=== PATIENT | male | born 1940 | race Caucasian/White ===

== ENCOUNTER → 2021-01-02 | Outpatient (CLI) | payer OTHER, BC ==
[~2021-01-02] MED LIST: ASPIR 8181 MG PO; ATORVASTATIN CA40 MG PO; CIPRO500 MG PO; COZAAR 50 MG TA50 M2 PO; FLEXERIL PO; FLOMAX0.4 MG PO; LIPITOR40 MG PO; LOPRESSOR25 PO; MICARDIS 80 MG80 MG PO; NITROGLYCERIN0.4 MG SUBLING; NORCO 5-325 TA1 EACH PO; PLAVIX 75 MG TA75 M1 PO; PLAVIX 75 MG TA75 MG PO; PROTONIX40 M2 PO; PROTONIX40 M4 PO
[2021-01-02 13:35] LABS: ABSOLUTE NEUTROPHILS 4.6 thou/uL (1.4-8.2); BASOPHILS 0.6 % (0.0-2.0); EOSINOPHILS 0.4 % (0.0-3.0); HEMATOCRIT 42.1 % (42.0-52.0); HEMOGLOBIN 14.2 gm/dL (14.0-18.0); LYMPHOCYTES 23.8 % (24.0-44.0); MCH 31.1 pg (26.0-34.0); MCHC 33.8 g/dL (28.0-37.0); MONOCYTES 8.5 % (1.0-8.0); PLATELET COUNT 190 thou/uL (150-400); POLYS 66.7 % (36.0-66.0); RBC 4.58 mil/uL (4.50-6.00); RDW 12.9 % (10.5-14.5); WBC 6.9 thou/uL (4.0-11.0)
--- NOTE | 2021-01-02 13:45 | EKG ---
[place] [address] [address] [place] [address] ELECTROCARDIOGRAM REPORT Name: QIAN HELLERRANJANA Collazo Room #: [facility]#: [id number] Admission: 01/02/21 Attend Phys: Keny Markham MD Discharge: Date of : 36 Report #: [id number] [facility] Test Date: 2021-01-02 Test Time: 13:29:11 Pat Name: VERONICA HELLER Department: Room: Gender: M Sack Keeper: RITA RUTHERFORD : 1940 Requested By: Keny Markham Order Number: [id number] : Janak Estrada Measurements Intervals [place] Rate: 71 P: 45 VA: 210 QRS: 33 QRSD: 87 T: 29 QT: 384 QTc: 418 Interpretive Statements Sinus rhythm Abnormal R-wave progression, early transition No previous ECG available for comparison Electronically Signed On 01-02-2021 13:45:23 CDT by Janak Estrada [email or web address] <ELECTRONICALLY SIGNED> By: Janak Estrada MD, [facility] 01/02/21 1345 1329 1329 Janak Estrada MD, FACC /EPI
[2021-01-02 13:47] LABS: APTT 25.5 Seconds (24.5-32.8); PROTIME 10.9 Seconds (10.5-12.1)
[2021-01-02 13:48] LABS: ALBUMIN 4.1 g/dL (3.4-5.0); CALCIUM 9.1 mg/dL (8.5-10.1); CREATININE 1.3 mg/dL (0.7-1.3); POTASSIUM 4.2 mmol/L (3.5-5.1); TOTAL BILIRUBIN 0.6 mg/dL (0.2-1.0); TOTAL PROTEIN 7.5 g/dL (6.4-8.2)
[2021-01-02 13:52] LABS: URINE BILIRUBIN NEGATIVE (Negative); URINE BLOOD NEGATIVE (Negative); URINE CLARITY CLEAR; URINE COLOR YELLOW; URINE GLUCOSE-RANDOM* NEGATIVE (Negative); URINE KETONES NEGATIVE (Negative); URINE LEUKOCYTES-REFLEX NEGATIVE (Negative); URINE NITRITE-REFLEX NEGATIVE (Negative); URINE PROTEIN (DIPSTICK) NEGATIVE (Negative)
== END ==
LOC: PAC 12:02
PROVIDERS: ATTEND Surgery Vascular Surgery
DX: Z01.818 Encounter for other preprocedural examination (principal); I65.21 Occlusion and stenosis of right carotid artery

== ENCOUNTER 2021-01-05 08:46 | Inpatient (IN) | payer OTHER, BC ==
[2021-01-05] VITALS (18 sets, daily range): BP systolic 79–125; BP diastolic 38–69
[~2021-01-05] VITALS: Ht 172.7 cm; Wt 89.8 kg
--- NOTE | 2021-01-05 16:39 | NUR ---
PT ARRIVED TO THE ICU FROM THE RECOVERY AT 1600. PT CONNECTED TO ICU MONITOR. PT ALERT AND ORIENTEDX4. PT RIGHT NECK PICCO DRESSING WAS CHECKED WITH ACCOUNTING SPECIALIST. PT HAS RIGHT RADIAL ART LINE. SEROSANGUINOUS DRAINAGE ON THE PICCO DRESSING WAS MARKED. CONTINUE TO MONITOR.
[2021-01-06] VITALS (18 sets, daily range): BP systolic 81–117; BP diastolic 42–82
[2021-01-06 05:44] LABS: HEMATOCRIT 29.4 % (42.0-52.0); HEMOGLOBIN 10.2 gm/dL (14.0-18.0); MCH 32.3 pg (26.0-34.0); MCHC 34.5 g/dL (28.0-37.0); MCV 93.5 fL (80.0-100.0); RBC 3.15 mil/uL (4.50-6.00); RDW 13.1 % (10.5-14.5); WBC 10.2 thou/uL (4.0-11.0)
[2021-01-06 05:48] LABS: CREATININE 1.2 mg/dL (0.7-1.3); POTASSIUM 4.2 mmol/L (3.5-5.1)
--- NOTE | 2021-01-06 06:08 | NUR ---
Progressing toward goals. Pt has remained off Cardene, VS stable. Urine output 450 cc for shift. No further drainage on right neck ASHU drsg overnight. Pain controlled with hydrocodone. Pt taking po without nausea or vomitting. Pt up to chair with minimal assist of 2.
--- NOTE | 2021-01-06 11:18 | O ---
[facility] [place] [address] OPERATIVE REPORT Name: VERONICA HELLER Room #: 250-P ADM IN M.R.#: [id number] Admission: 01/05/21 Attend Phys: Keny Markham MD Discharge: Date of : 36 Report #: [id number] THIS REPORT FOR: cc: Nikki Beltran MD, Katrina MD Forman,Keny Friend MD ~ DOC #: [id number] Keny Markham MD DATE OF SERVICE: 01/05/2021 PREOPERATIVE DIAGNOSIS: Right carotid artery stenosis. POSTOPERATIVE DIAGNOSIS: Right carotid artery stenosis. PROCEDURE: Right carotid endarterectomy with patch closure. SURGEON: Keny Markham MD [employer]ICER: CHRIS Jernigan. ANESTHESIA: General. INDICATIONS: The patient is an 80-year-old with 90+ % right internal carotid stenosis, left side has calcification, but more trivial stenosis. FINDINGS AND TECHNIQUE: After general anesthesia was established, an oblique right neck incision was made. Common internal and external carotid artery and the superior thyroid artery were identified and controlled. The bifurcation was relatively low. A 10,000 units of heparin were given and the carotid vessels were occluded. Continuous electroencephalographic monitoring was performed when the carotid vessels were occluded, no EEG changes were noted. The carotid arteriotomy was made. The endarterectomy was performed without creating a distal flap. Neointima was inspected and all loose debris was removed. Tacking sutures were placed at the transition zone. When the endarterectomy was deemed to be satisfactory, the arteriotomy was closed with thin walled pericardial patch and running Prolene. Prior to finishing the closure, the carotid vessels were backbled and the artery was flushed with heparinized saline. Flow was established first through the external and the internal carotid artery. Protamine was given. Hemostasis was ascertained. [facility] [address] [place] [address] OPERATIVE REPORT Name: VERONICA HELLER Vale Room #: 250-P [facility] IN M.R.#: [id number] Admission: 01/05/21 Attend Phys: Keny Markham MD Discharge: Date of : 36 Report #: [id number] A Lupe drain was brought out through the bottom pole of the incision and the wound was closed in layers. The patient was taken to the recovery area where his neurologic progress was monitored. All counts were reported as correct. Keny Markham MD JF/KDA <ELECTRONICALLY SIGNED> By: Keny Markham MD 01/06/21 1118 1253 1336 Keny Markham MD /nt
--- NOTE | 2021-01-06 12:11 | NUR ---
0700-OOB TO CHAIR ON ARRIVAL INTO ROOM.--VW 0900-WORKING W O.T.--VW 1000-WOTKING W P.T.--VW 1130- IN.ASHU DRSG CHANGED pREMOVAL OF AKIL CALDWELL.KRISTY & RT ACF D/C'D. PT IN EXCELLENT SPIRITS. STATED ~2 WEEKS AGO HE HAD A RIDING LAWNMOWER FALL OFF THE RAMPS WHEN LOADING IT,IT ROLLED OVER HIM AND HIS HEAD WAS HIT,SEVERAL SECONDS OF LOC. HE DID SEE HIS PRIMARY p.NO PATINO OR VISION PROBLEMS. GAIT IS A LITTLE OFF, PER P.T. & PT STATES HE HAS BEEN DEALING W LOSS OF BALANCE FOR SEVERAL MONTHS.--VW
[2021-01-07] VITALS: BP 111/59
[2021-01-07 04:20] VITALS: BP 144/77
--- NOTE | 2021-01-07 05:03 | NUR ---
assumed pt care at 1900, pt is up to the chair, alert and orientedx4, pleasant, denies pain, assessments completed and as charted, sr/sb on tele, adequate urine output, jemal dressing intact with small dried blood, no acute distress nohted, will continue to monitor and follow poc
[2021-01-07 07:35] VITALS: BP 133/70
[2021-01-07 11:35] VITALS: BP 146/59
[2021-01-07 13:31] VITALS: BP 146/59
--- NOTE | 2021-01-07 13:59 | NUR ---
ASSESSMENT CHARTED - MEDS PER OCT - NO CO'S OF PAIN OR NAUSEA. RADHA DIET AND FLUIDS. DRESSING TO R NECK WITH SIDES LIFTING UP - DR DUKE AWARE. UP TO THE BATHROOM WITH MIN ASSIST AND GAIT BELT. PT HOME THIS AFTERNOON. INSTRUCTION RE HOME MEDS/ CARE AND FOLLOW UP GIVEN TO PATIENT AND DAUGHTER - STATED UNDERSTANDING OF INSTRUCTION GIVEN. PT LEFT THE UNIT VIA WHEELCHAIR HOME VIA PVT VEHICLE ACCOMPANIED BY DAUGHTER. NO CO'S AT TIME OF D/.C.
--- NOTE | 2021-01-09 13:13 | PATH ---
[facility] [address] [place] [address] PATHOLOGY RPT PROCEDURE Name: SKY HELLER Vale Room #: 206-P DIS IN M.R.#: [id number] Admission: 01/05/21 Date of : 36 Discharge: 01/07/21 Report #: [id number] Path Case #: [id number] [facility] Accession Number: [id number] . 01 Material submitted: . artery - RIGHT CAROTID ARTERY PLAQUE. Modifiers: right, carotid . 01 Clinical history: . CAROTID ENDARTERECTOMY CAROTID STENOSIS . 02 Diagnosis: Right carotid artery plaque, endarterectomy: - Fragments of vessel wall with myxoid changes as well as calcific atherosclerotic plaque material. (IUV:pit; 01/08/2021) QTP 01/08/2021 1638 Local . 02 Electronically signed: . Addie Palacios MD, Pathologist NPI- [id number] . 01 Gross description: . Received in formalin labeled "Sky Heller, right carotid artery plaque" is a tubular portion of yellow-tran rubbery tissue measuring 2.4 cm in length and 1.4 cm in diameter. The specimen is sectioned to reveal a cut surface displaying focal yellow-tran calcification and possible stenosis of up to 25%. Sports Betting Manager tissue is submitted in cassette A1. ([facility]; 01/07/2021) [facility] 01/07/2021 1403 Local . 02 Pathologist provided ICD-10: I77.1 . 02 CPT . 467249 Specimen Comment: A courtesy copy of this report has been sent to [phone] Specimen Comment: [id number] Specimen Comment: Report sent to / DR SALOMON Specimen Comment: A duplicate report has been generated due to demographic updates. Performed at: [address] [id number] MD Holden Gonzalez MD Phone: [phone] Performed at: [address] [address] PATHOLOGY RPT PROCEDURE Name: QIAN HELLERENCE Room #: 206-P DIS IN M.R.#: [id number] Admission: 01/05/21 Date of : 36 Discharge: 01/07/21 Report #: [id number] Path Case #: [id number] [facility] [address] [id number] MD Addie Palacios MD Phone: [phone]
== END 2021-01-07 13:50 | disposition home or self-care (01) | DRG 39 ==
LOC: PRE 08:46 → TBA 09:11 → PRE 12:23 → ICU 15:37 → 2N 01-06 18:59
PROVIDERS: Physician Assistant; ADMIT Surgery Vascular Surgery; ATTEND Surgery Vascular Surgery
PROC: 03CK0ZZ Extirpation of Matter from Right Internal Carotid Artery, Open Approach (ICD-10-PCS; principal; 2021-01-05)
PROC: 03UK07Z Supplement Right Internal Carotid Artery with Autologous Tissue Substitute, Open Approach (ICD-10-PCS; principal; 2021-01-05)
DX: I65.21 Occlusion and stenosis of right carotid artery (principal); I25.10 Atherosclerotic heart disease of native coronary artery without angina pectoris; N40.0 Benign prostatic hyperplasia without lower urinary tract symptoms; E11.51 Type 2 diabetes mellitus with diabetic peripheral angiopathy without gangrene; G89.29 Other chronic pain; K21.9 Gastro-esophageal reflux disease without esophagitis; M54.9 Dorsalgia, unspecified; E78.5 Hyperlipidemia, unspecified; I10 Essential (primary) hypertension; Z85.51 Personal history of malignant neoplasm of bladder; Z90.49 Acquired absence of other specified parts of digestive tract; Z86.73 Personal history of transient ischemic attack (TIA), and cerebral infarction without residual deficits; I25.2 Old myocardial infarction; Z98.42 Cataract extraction status, left eye; Z98.41 Cataract extraction status, right eye; Z92.3 Personal history of irradiation
CPT/HCPCS: 10078; 10797; 47375; 48889; 50010; 50101; 50386; 50403; 50455; 51301; 52287; 54118; 56524; 56526; 56528; 56531; 56534; 57254; 58731; 62110; 62900; 65020; 70005